=== PATIENT | female | born 1990 | race Caucasian/White ===

== ENCOUNTER 2017-12-12 02:06 | Emergency (ER) | payer OTHER ==
[2017-12-12] MEDS ORDERED: PRENATAL FORMU1 EAC2 PO (02:17)
[2017-12-12 02:38] LABS: EOS # 0.3 (0.04-0.40); EOS % 3.2 % (1.0-5.0); HEMATOCRIT 43.1 % (37.0-47.0); HEMOGLOBIN 14.4 g/dL (12.5-16.0); LYMPH# 3.7 (1.50-4.00); MEAN CELL VOLUME 91 fl (78-100); MEAN CORPUSCULAR HEMOGLOBIN 30 pg (27-31); MEAN CORPUSCULAR HGB CONC 33 g/dL (33-37); MEAN PLATELET VOLUME 8.4 fl (7.4-10.4); MONO # 0.7 (0.20-0.80); NEU # 5.7 (1.40-6.50); PLATELET COUNT 409 K/mm3 (130-400); RED BLOOD COUNT 4.76 M/mm3 (4.10-5.30); RED CELL DISTRIBUTION WIDTH 12.8 % (11.5-14.5); WHITE BLOOD COUNT 10.4 K/mm3 (4.8-10.8)
[2017-12-12 02:53] LABS: ALBUMIN 4.1 g/dL (3.5-5.0); BUN/CREATININE RATIO 20.1 (6.0-26.0); CALCIUM 9.4 mg/dL (8.4-10.2); TOTAL BILIRUBIN 0.4 mg/dL (0.2-1.3); TOTAL PROTEIN 7.2 g/dL (6.3-8.2)
[2017-12-12 03:03] LABS: D-DIMER 0.43 mg/L FEU (0.15-0.50)
[2017-12-12 03:34] LABS: PH-URINE 5.5 (5.0 - 8.0); URINE APPEARANCE CLOUDY; URINE BILIRUBIN NEGATIVE (NEGATIVE); URINE BLOOD TRACE (NEGATIVE); URINE COLOR YELLOW; URINE GLUCOSE NEGATIVE (NEGATIVE); URINE KETONE NEGATIVE (NEGATIVE); URINE LEUKOCYTE ESTERASE 1+ (NEGATIVE); URINE NITRATE NEGATIVE (NEGATIVE); URINE PROTEIN(semi-quant) NEGATIVE (NEGATIVE); URINE UROBILINOGEN NORMAL (NORMAL); URINE WBC 16-30 /hpf (0-3)
[2017-12-12 03:35] LABS: URINE MUCUS PRESENT (NOT PRESENT)
[2017-12-12] MEDS ORDERED: KEFLEX250 M1 PO (04:03)
[2017-12-12 04:09] VITALS: BP 148/86
== END 2017-12-12 04:09 | disposition home or self-care (01) ==
LOC: ED 02:06
PROVIDERS: Physician Assistant
DX: O90.89 Other complications of the puerperium, not elsewhere classified (principal); R07.89 Other chest pain; R06.02 Shortness of breath; O86.20 Urinary tract infection following delivery, unspecified
CPT/HCPCS: Q9967